=== PATIENT | male | born 1980 | race Caucasian/White ===

== ENCOUNTER 2019-04-17 01:14 | Emergency (ER) | payer SELFPAY ==
--- NOTE | 2019-04-17 01:49 | ER Document Report ---
ED Substance Abuse / Acc. OD <DEEJAY COLUNGA - Last Filed: 04/17/19 09:54> - General Mode of Arrival: Ambulatory Information source: Patient Cannot obtain history due to: Other - Patient drowsy, patient states he has difficulty concentrating on the answers to questions - HPI Patient complains to provider of: Substance abuse Onset: This afternoon Quality of pain: No pain Associated Symptoms: None <PARADISE COOK - Last Filed: 04/18/19 01:15> - General Chief Complaint: Medical Clearance Stated Complaint: DRUG WITHDRAWAL Time Seen by Provider: 04/17/19 01:32 EST Notes: Patient was sent here from the detox facility due to him falling asleep in a quiet room. Patient states that he was seeking treatment for substance abuse involving snorting heroin and methamphetamine. Patient denies any IV drug use. Patient denies any suicidal homicidal ideation. Patient reports last using heroin and meth earlier this afternoon. (PARADISE COOK) - Related Data Allergies/Adverse Reactions: No Known Allergies Allergy (Unverified 04/17/19 01:25 EST) Past Medical History - General Information source: Patient Cannot obtain history due to: Intoxicated - Social History Smoking Status: Current Every Day Smoker Drug Abuse: Heroin, Methamphetamine Family History: Reviewed & Not Pertinent Patient has suicidal ideation: No Patient has homicidal ideation: No Psychiatric Medical History: Reports: Other - Unspecified mental illness <PARADISE COOK - Last Filed: 04/18/19 01:15> Review of Systems - Review of Systems -: Yes ROS unobtainable due to patient's medical condition <PARADISE COOK - Last Filed: 04/18/19 01:15> Physical Exam - General General appearance: Appears well, Other - drowsy, arouses easily to voice In distress: None - HEENT Head: Normocephalic, Atraumatic Eyes: Normal Nasal: Normal Neck: Normal, Supple - Respiratory Respiratory status: No respiratory distress Chest status: Nontender Breath sounds: Normal. No: Rales, Rhonchi, Stridor, Wheezing Chest palpation: Normal - Cardiovascular Rhythm: Regular Heart sounds: S1 appreciated, S2 appreciated - Back Back: Normal - Extremities General upper extremity: Normal inspection, Normal strength General lower extremity: Normal inspection, Normal strength - Neurological Point Comfort Coma Scale Eye Opening: Spontaneous Malachi Coma Scale Verbal: Oriented Malachi Coma Scale Motor: Obeys Commands Malachi Coma Scale Total: 15 - Skin Skin Temperature: Warm Skin Moisture: Dry Skin Color: Normal <PARADISE COOK - Last Filed: 04/18/19 01:15> - Vital signs Vitals: Temp Pulse Resp BP Pulse Ox 98.0 F 77 18 122/95 H 98 04/17/19 01:23 EST 04/17/19 01:23 EST 04/17/19 01:23 EST 04/17/19 01:23 EST 04/17/19 01:23 EST Course - Laboratory Result Diagrams: 04/17/19 02:15 04/17/19 02:15 <DEEJAY COLUNGA - Last Filed: 04/17/19 09:54> - Laboratory Result Diagrams: 04/17/19 02:15 04/17/19 02:15 <PARADISE COOK - Last Filed: 04/18/19 01:15> - Re-evaluation Re-evalutation: 04/17/19 09:54 Laboratory 04/17/19 04/17/19 04/17/19 02:15 02:15 06:50 WBC 5.5 RBC 4.69 Hgb 14.2 Hct 41.2 MCV 88 MCH 30.3 MCHC 34.4 RDW 12.8 Plt Count 208 Lymph % (Auto) 39.2 [place] % (Auto) 8.0 Eos % (Auto) 3.6 Baso % (Auto) 0.4 Absolute Neuts (auto) 2.7 Absolute Lymphs (auto) 2.2 Absolute Monos (auto) 0.4 Absolute Eos (auto) 0.2 Absolute Basos (auto) 0.0 Seg Neutrophils % 48.8 Sodium 140.9 Potassium 4.1 Chloride 101 Carbon Dioxide 33 H Anion Gap 7 BUN 15 Creatinine 1.04 Est GFR ( Amer) > 60 Est GFR (MDRD) Non-Af > 60 Glucose 89 Calcium 9.5 Total Bilirubin 1.1 Direct Bilirubin 0.0 Neonat Total Bilirubin Not Reportable Neonat Direct Bilirubin Not Reportable Neonat Indirect Bili Not Reportable AST 30 ALT 32 Alkaline Phosphatase 92 Total Protein 7.5 Albumin 4.2 Urine Color YELLOW Urine Appearance CLEAR Urine pH 5.0 Ur Specific [place] 1.026 Urine Protein NEGATIVE Urine Glucose (UA) NEGATIVE Urine Ketones NEGATIVE Urine Blood NEGATIVE Urine Nitrite NEGATIVE Urine Bilirubin NEGATIVE Urine Urobilinogen 2.0 H Ur Leukocyte Esterase NEGATIVE Urine RBC 1-5 Urine WBC 1-5 Urine Bacteria TRACE Hyaline Casts RARE Urine Ascorbic Acid NEGATIVE Salicylates < 1.0 L Urine Opiates Screen Urine Methadone Screen Acetaminophen < 10 L Ur Barbiturates Screen Ur Phencyclidine Scrn Ur Amphetamines Screen U Benzodiazepines Scrn Urine Cocaine Screen U Marijuana (THC) Screen Serum Alcohol < 10 04/17/19 06:50 WBC RBC Hgb Hct MCV MCH MCHC RDW Plt Count Lymph % (Auto) [place] % (Auto) Eos % (Auto) Baso % (Auto) Absolute Neuts (auto) Absolute Lymphs (auto) Absolute Monos (auto) Absolute Eos (auto) Absolute Basos (auto) Seg Neutrophils % Sodium Potassium Chloride Carbon Dioxide Anion Gap BUN Creatinine Est GFR ( Amer) Est GFR (MDRD) Non-Af Glucose Calcium Total Bilirubin Direct Bilirubin Neonat Total Bilirubin Neonat Direct Bilirubin Neonat Indirect Bili AST ALT Alkaline Phosphatase Total Protein Albumin Urine Color Urine Appearance Urine pH Ur Specific [place] Urine Protein Urine Glucose (UA) Urine Ketones Urine Blood Urine Nitrite Urine Bilirubin Urine Urobilinogen Ur Leukocyte Esterase Urine RBC Urine WBC Urine Bacteria Hyaline Casts Urine Ascorbic Acid Salicylates Urine Opiates Screen UNCONFIRMED POSITIVE Urine Methadone Screen NEGATIVE Acetaminophen Ur Barbiturates Screen NEGATIVE Ur Phencyclidine Scrn NEGATIVE Ur Amphetamines Screen U Benzodiazepines Scrn NEGATIVE Urine Cocaine Screen NEGATIVE U Marijuana (THC) Screen NEGATIVE Serum Alcohol I have evaluated this patient at bedside. He is initially sleeping, easily arousable to verbal stimuli. He is conscious alert and oriented x4. He voices that he is attempting to go to detox. [facility] detox facility made him come to the emergency room. Patient voices no complaints. Stable for discharge. (DEEJAY COLUNGA) 04/17/19 07:26 Patient sleeping, arouses easily to voice. 04/17/19 08:10 Report and handoff given to chest related Sharmin COTE. Awaiting mental health evaluation. (PARADISE COOK) - Vital Signs Vital signs: Temp Pulse Resp BP Pulse Ox 98.0 F 77 15 115/79 99 04/17/19 01:23 EST 04/17/19 01:23 EST 04/17/19 05:01 04/17/19 09:01 04/17/19 09:01 - Laboratory Laboratory results interpreted by me: 04/17/19 04/17/19 02:15 06:50 Carbon Dioxide 33 H Urine Urobilinogen 2.0 H Salicylates < 1.0 L Acetaminophen < 10 L Discharge <DEEJAY COLUNGA - Last Filed: 04/17/19 09:54> <PARADISE COOK - Last Filed: 04/18/19 01:15> - Discharge Clinical Impression: Altered mental state Qualifiers: Altered mental status type: unspecified Qualified Code(s): R41.82 - Altered mental status, unspecified Condition: Stable Disposition: OTHER Additional Instructions: As we discussed you have been seen and treated in the emergency department for medical clearance to go to detox. Please make sure you are going to detox. Please return to the emergency department for any concerns.
[2019-04-17 02:29] LABS: ABSOLUTE EOSINOPHILS # (AUTO) 0.2 10^3/uL (0.0-0.6); ABSOLUTE LYMPHOCYTES (AUTO) 2.2 10^3/uL (0.5-4.7); ABSOLUTE MONOCYTES (AUTO) 0.4 10^3/uL (0.1-1.4); ABSOLUTE NEUT (AUTO) 2.7 10^3/uL (1.7-8.2); BASOPHILS % (AUTO) 0.4 % (0-2); EOSINOPHILS % (AUTO) 3.6 % (0-6); HEMATOCRIT 41.2 % (37.9-51.0); HEMOGLOBIN 14.2 g/dL (13.5-17.0); LYMPHOCYTES % (AUTO) 39.2 % (13-45); MEAN CORPUSCULAR HEMOGLOBIN 30.3 pg (27.0-33.4); MEAN CORPUSCULAR HGB CONC 34.4 g/dL (32.0-36.0); MEAN CORPUSCULAR VOLUME 88 fl (80-97); PLATELET COUNT 208 10^3/uL (150-450); RED BLOOD COUNT 4.69 10^6/uL (4.35-5.55); RED CELL DISTRIBUTION WIDTH 12.8 % (11.5-14.0); SEGMENTED NEUTROPHILS % (AUTO) 48.8 % (42-78); TOTAL CELLS COUNTED % (AUTO) 100 %; WHITE BLOOD COUNT 5.5 10^3/uL (4.0-10.5)
[2019-04-17 02:50] LABS: ACETAMINOPHEN < 10 ug/mL (10-30); ALBUMIN 4.2 g/dL (3.5-5.0); ALCOHOL < 10 mg/dL (NONE DETECTED); ALKALINE PHOSPHATASE 92 U/L (38-126); ANION GAP 7 (5-19); ASPARTATE AMINO TRANSFERASE 30 U/L (17-59); BILIRUBIN,TOTAL 1.1 mg/dL (0.2-1.3); BLOOD UREA NITROGEN 15 mg/dL (7-20); CALCIUM 9.5 mg/dL (8.4-10.2); CARBON DIOXIDE 33 mmol/L (22-30); CHLORIDE 101 mmol/L (98-107); GLUCOSE 89 mg/dL (75-110); POTASSIUM 4.1 mmol/L (3.6-5.0); SALICYLATE < 1.0 mg/dL (2.0-20.0); TOTAL PROTEIN 7.5 g/dL (6.3-8.2)
[2019-04-17 07:05] LABS: APPEARANCE,URINE CLEAR; BILIRUBIN,URINE NEGATIVE (NEGATIVE); COLOR,URINE YELLOW; GLUCOSE, URINE NEGATIVE (NEGATIVE); KETONES,URINE NEGATIVE (NEGATIVE); LEUKOCYTE ESTERASE,URINE NEGATIVE (NEGATIVE); NITRITE,URINE NEGATIVE (NEGATIVE); PROTEIN,URINE NEGATIVE (NEGATIVE); URINE SPECIFIC GRAVITY 1.026
[2019-04-17 07:06] LABS: ADD MANUAL MICROSCOPIC YES
[2019-04-17 07:14] LABS: BACTERIA,URINE TRACE /HPF; HYALINE CASTS, URINE RARE /LPF
[2019-04-17 07:16] LABS: URINE BARBITURATES SCREEN NEGATIVE; URINE BENZODIAZEPINES SCREEN NEGATIVE; URINE COCAINE SCREEN NEGATIVE; URINE MARIJUANA (THC) SCREEN NEGATIVE; URINE METHADONE SCREEN NEGATIVE; URINE PHENCYCLIDINE SCREEN NEGATIVE
--- NOTE | 2019-04-17 08:10 | EKG REPORT ---
SEVERITY:- ABNORMAL ECG - SINUS RHYTHM CONSIDER ANTEROSEPTAL INFARCT : Confirmed by: Sabas Garcia MD 17-Apr-2019 08:09:00
[2019-04-17 09:51] VITALS: BP 115/79
== END 2019-04-17 10:25 | disposition other institution (70) ==
LOC: ER 01:14
DX: R41.82 Altered mental status, unspecified (principal); F17.200 Nicotine dependence, unspecified, uncomplicated
CPT/HCPCS: 36415; 80053; 80307; 81001; 85025; 93005; 93010; 99284